=== PATIENT | male | born 1960 | race Caucasian/White ===

== ENCOUNTER 2018-06-04 18:03 | Emergency (ER) | payer OTHER ==
[~2018-06-04] VITALS: Ht 167.6 cm; Wt 67.6 kg
[2018-06-04] MEDS ORDERED: NEURONTIN600 MG PO (18:21)
[2018-06-04] MEDS ORDERED: ATORVASTATIN CA40 MG PO (18:22)
[2018-06-04] MEDS ORDERED: FENTANYL PATCH75 MCG TRANSDERM (18:22)
[2018-06-04] MEDS ORDERED: POTASSIUM20 PO (18:22)
[2018-06-04] MEDS ORDERED: HYDROCODON-ACE1 EA12 PO (18:22)
[2018-06-04] MEDS ORDERED: VITAMIN B-12500 MCG PO (18:22)
[2018-06-04] MEDS ORDERED: MUSCLE RELAXER PO (18:23)
[2018-06-04] MEDS ORDERED: CENTANY30 GM TOP (19:06)
[2018-06-04 20:16] VITALS: BP 96/62
== END 2018-06-04 20:16 | disposition home or self-care (01) ==
LOC: M.ERS 18:03
DX: S01.81XA Laceration without foreign body of other part of head, initial encounter (principal); W10.9XXA Fall (on) (from) unspecified stairs and steps, initial encounter; Y93.89 Activity, other specified; Y92.89 Other specified places as the place of occurrence of the external cause; Y99.8 Other external cause status